=== PATIENT | male | born 1940 | race Caucasian/White ===

== ENCOUNTER 2017-06-11 01:29 | Day surgery (SDC) | payer OTHER ==
[~2017-06-11] VITALS: Ht 170.2 cm; Wt 80.7 kg
--- NOTE | ~2017-06-11 | EKG ---
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
--- NOTE | ~2017-06-11 | O ---
[facility] [place] [address] OPERATIVE REPORT Name: SANJU JASSO Room #: DEP [facility].#: [id number] Admission: 06/11/17 Attend Phys: Len Monreal MD Discharge: 06/11/17 Date of : 44 Report #: [id number] THIS REPORT FOR: //name// CC: Len Monreal FAM unknown PREOPERATIVE DIAGNOSIS: Left knee medial meniscus tear with unstable flap. POSTOPERATIVE DIAGNOSIS: Left knee medial meniscus tear with unstable flap. PROCEDURE: Left knee arthroscopy with debridement of unstable flap tear, medial meniscus. SURGEON: Len Monreal MD INDICATIONS: This still slender, fit and active 77-year-old gentleman presents with left knee pain, which is a persistent and progressive problem. 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 Given these symptoms and findings, we have elected to go ahead with arthroscopic debridement. DESCRIPTION OF PROCEDURE: The patient was taken to the operating room where he was placed under general anesthesia. Prophylactic intravenous antibiotics were administered. The left knee and leg were meticulously prepped and draped and a thigh tourniquet inflated to 300 mmHg. A lateral suprapatellar inflow cannula was placed and the knee was inflated with normal saline. The arthroscope and shaver were introduced through parapatellar tendon approaches. The various compartments were sequentially visualized and documented with arthroscopic photography. The medial compartment reveals only mild fissuring and grooving on the medial femoral condyle and the tibial plateau consist with mild chondromalacia, but without marked or significant degenerative arthritis. There was, however, significant unstable tearing of the mid and posterior aspect of the medial meniscus with a portion of the meniscus flipped down along the meniscotibial recess. This was flipped back up into the joint and appeared to be somewhat mobile and unstable. This area of meniscus was debrided. This involved about the inner one-half to two-thirds of the meniscus. The outer remaining rim of the meniscus seemed to be stable and functional. The more anterior portion of the medial meniscus extending towards the anterior horn was in better shape and no debridement there was necessary. Intercondylar notch reveals the cruciate ligaments to be present and functioning normally. There was some synovial hypertrophy in this region, which was resected for visualization. No further debridement in the notch was required. The lateral compartment reveals similar mild fissuring and grooving on the lateral femoral condyle, but this was not severe and no debridement there was [facility] [address] [place] [address] OPERATIVE REPORT Name: SANJU JASSO Room #: DEP [facility] Dain#: [id number] Admission: 06/11/17 Attend Phys: Len Monreal MD Discharge: 06/11/17 Date of : 44 Report #: [id number] necessary. There was an area of mild fraying and tearing in the mid and anterior portion of the lateral meniscus, which involved only about the inner 25% of the meniscus. This was debrided with a small shaver. The rest of the meniscus seems to be intact and stable and no further debridement was necessary. The patella and trochlear region seemed to be in good shape with only minor fissuring and grooving. There was a little cartilage damage at the inferior medial pole of the patella, which was debrided. The rest of the cartilage on both the patella and the trochlea seemed to be in good shape and no further debridement there was necessary. The suprapatellar pouch revealed mild synovial hypertrophy, which was debrided for visualization. There was a bit of loose cartilage debris, but this was not severe. This was also irrigated and evacuated. The remainder of the knee seemed to be in good shape with only minor degenerative change. At this point, the entire knee was copiously irrigated. All excess fluid was evacuated from the knee. The knee was then injected with 40 mg of Depo-Medrol and 20 mL of 0.25% Marcaine with epinephrine. The puncture sites were closed with interrupted nylon suture. The tourniquet was deflated and a gently compressive dressing was applied. The patient was awakened and returned to the recovery room in good condition. <ELECTRONICALLY SIGNED> By: Len Monreal MD 06/14/17 1427 [id number] Len Monreal MD /nt
[~2017-06-11 01:29] MED LIST: ASPIR 8181 MG PO; CALCIUM 500 +1 EAC5 PO; COZAAR 25 MG TA25 M1 PO; FLOMAX0.4 MG PO; LEXAPRO20 MG PO; PRILOSEC 20 MG20 MG PO; RITALIN10 MG PO; SIMVASTATIN40 MG PO; SORIATANE25 MG PO; ZETIA10 MG PO
[2017-06-11 09:19] VITALS: BP 107/69
[2017-06-11 11:10] VITALS: BP 107/69
== END 2017-06-11 11:40 | disposition home or self-care (01) ==
LOC: OR 01:29 → TBA 01:29 → OR 09:08
DX: S83.242A Other tear of medial meniscus, current injury, left knee, initial encounter (principal); M17.0 Bilateral primary osteoarthritis of knee; M67.262 Synovial hypertrophy, not elsewhere classified, left lower leg; G47.33 Obstructive sleep apnea (adult) (pediatric); E78.5 Hyperlipidemia, unspecified; I10 Essential (primary) hypertension; Z95.1 Presence of aortocoronary bypass graft; Z87.442 Personal history of urinary calculi; Z85.828 Personal history of other malignant neoplasm of skin; Z98.890 Other specified postprocedural states; Z79.899 Other long term (current) drug therapy; Z79.82 Long term (current) use of aspirin; X58.XXXA Exposure to other specified factors, initial encounter; Y93.89 Activity, other specified; Y92.89 Other specified places as the place of occurrence of the external cause; Y99.8 Other external cause status
CPT/HCPCS: 50010; 50101; 50405; 50612; 51038; 54170; 56526; 62110; 62900; 70005